=== PATIENT | male | born 1960 | race Two or more races ===

== ENCOUNTER 2016-08-21 15:09 | Emergency (ER) | payer SELFPAY ==
[2016-08-21 15:16] VITALS: BMI 27.1
[2016-08-21 15:21] VITALS: RESP 16; O2SAT 98
--- NOTE | 2016-08-21 16:13 | ED PDOC ---
Arrival/HPI - General Chief Complaint: Bite Time Seen by Provider: 08/21/16 16:08 Historian: Patient - History of Present Illness Narrative History of Present Illness (Text): 08/21/16 16:08 pt refused to be seen in er; states he was bit by dog. unsure of tetanus. Does not want a bill. Past Medical History - Provider Review Nursing Documentation Reviewed: Yes - Travel History Have you recently traveled outside [place] w/in the past 3 mons?: No - Tetanus Immunization Tetanus Immunization: Unknown - Cardiac Hx Cardiac Disorders: No - Pulmonary Hx Respiratory Disorders: No - Neurological Hx Neurological Disorder: No - HEENT Hx HEENT Disorder: No - Renal Hx Renal Disorder: No - Endocrine/Metabolic Hx Endocrine Disorders: No - Hematological/Oncological Hx Blood Disorders: No - Integumentary Hx Dermatological Disorder: No - Musculoskeletal/Rheumatological Hx Musculoskeletal Disorders: No - Gastrointestinal Hx Gastrointestinal Disorders: No - Genitourinary/Gynecological Hx Genitourinary Disorders: No - Psychiatric Hx Psychophysiologic Disorder: No Hx Substance Use: No - Surgical History Other/Comment: hernia - Anesthesia Hx Anesthesia: No Family/Social History - Physician Review Nursing Documentation Reviewed: Yes Family/Social History: Unknown Family HX Smoking Status: Heavy Smoker > 10 Cigarettes Daily Hx Alcohol Use: Yes Frequency of alcohol use: Socially Hx Substance Use: No Physical Exam Vital Signs Resp Pulse Ox 08/21/16 15:15 16 98 - Systems Exam Respiratory/Chest: Present: Clear to Auscultation Cardiovascular: Present: Regular Rate and Rhythm Lower Extremity: Present: NORMAL PULSES, Normal ROM, Swelling, Capillary Refill < 2 s, Other (there are multiple abrasions noted to lateral aspect of left ). No: CALF TENDERNESS, Tenderness, Erythema, Deformity Neurological: Present: GCS=15, Speech Normal Skin: Present: Warm, Dry Psychiatric: Present: Alert, Oriented x 3 Medical Decision Making ED Course and Treatment: 08/21/16 16:34 pt in er for dog bite; unknown dog. police report was filed. pt is refusing to be treated in ER; does not want to pay for the visit. refused vitals. i advised the patient that with the hx of dog bite, he should have the wounds cleaned, and started on augmentin and start rabies immunoglobulin and rabies vaccine. pt states he will take his chances. he states he cant afford an er visit. he is only here because the police told him to come. Patient has been advised to not leave the emergency room but has decided to go AGAINST MEDICAL ADVICE. The patient possesses capacity to make decisions and has voiced understanding to all my warnings of potential worsening of the condition for which medical care was sought. I have discussed all known and potential risks and consequences to the patient leaving AGAINST MEDICAL ADVICE. Patient is leaving against medical advise. Patient was advised of the risk of infection, loss of limb, and disability or worsening of any symptoms. AMA form signed. witness by RUTHIE ISAACS RN. impression; dog bite return if you wish to start treatment/choose to be evaluated. Disposition/Present on Arrival - Present on Arrival Any Indicators Present on Arrival: No History of DVT/PE: No History of Uncontrolled Diabetes: No Urinary Catheter: No History of Decub. Ulcer: No History Surgical Site Infection Following: None - Disposition Have Diagnosis and Disposition been Completed?: Yes Diagnosis: Dog bite, Abrasion, leg w/o infection Disposition: AGAINST MEDICAL ADVICE Disposition Time: 15:15 Patient Plan: Other (AMA) Condition: UNKNOWN
== END 2016-08-21 15:38 | disposition left against medical advice (07) ==
LOC: ED 15:09
DX: S80.812A Abrasion, left lower leg, initial encounter (principal); W54.0XXA Bitten by dog, initial encounter; F17.210 Nicotine dependence, cigarettes, uncomplicated